=== PATIENT | female | born 1990 | race African-American/Black ===

== ENCOUNTER 2021-02-26 13:22 | Outpatient (CLI) | payer BC ==
[~2021-02-26 13:22] MED LIST: Iopamidol 300 61% 50 ML VIAL FS ONE
[2021-02-26 13:55] LABS: BHCG - Serum Negative (NEGATIVE); Pregs Control Background? CLEAR/WHITE (CLR/WHITE); Pregs Control Bar Appear? YES (CONTROL BAR)
== END 2021-02-26 13:23 | disposition home or self-care (01) ==
LOC: RAD 13:22
PROVIDERS: ATTEND Obstetrics & Gynecology
DX: Z31.41 Encounter for fertility testing (principal); N97.1 Female infertility of tubal origin
CPT/HCPCS: 36415; 58340; 74740; 84703; Q9967